=== PATIENT | male | born 1945 ===

== ENCOUNTER 2022-04-08 09:03 | Outpatient (CLI) | payer MEDICARE, BC, SELFPAY ==
--- NOTE | 2022-04-08 08:45 | DI.RAD_ITS ---
Exam(s) XR THUMB RT EXAM: XR THUMB RT CLINICAL HISTORY: eval R thumb MCP and CMC joint. TECHNIQUE: 2D digital imaging was performed. Three views. COMPARISON: No exams were available for comparison FINDINGS: There are severe degenerative changes at the 1st carpal metacarpal joint. There is some lateral subl uxation. There is severe joint space narrowing prominent periarticular spurring as well as multiple surrounding chronic bony densities. There is abnormal hyper extension at the 1st metacarpophalangeal joint which shows mild degenerative changes. There are minimal degenerative changes of the interpha langeal joint of the thumb. 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 DATA REPOSITORY: RADIATION DOSE DELIVERED:
== END 2022-04-08 09:04 | disposition home or self-care (01) ==
LOC: DIORS 09:03
PROVIDERS: Visit Provider Student in an Organized Health Care Education/Training Program
DX: S63.104A Unspecified dislocation of right thumb, initial encounter (principal); W19.XXXA Unspecified fall, initial encounter; M18.11 Unilateral primary osteoarthritis of first carpometacarpal joint, right hand; M18.12 Unilateral primary osteoarthritis of first carpometacarpal joint, left hand; M25.341 Other instability, right hand
CPT/HCPCS: 99203; 73140